=== PATIENT | male | born 1990 | race African-American/Black ===

== ENCOUNTER 2017-04-08 16:13 | Observation (INO) ==
[2017-04-08] MEDS ORDERED: SODIUM CHLORIDE 0.9% 1,000 ML IV STA (16:26)
--- NOTE | 2017-04-08 16:46 | Emergency Department Note ---
Arrival - Arrival Chief Complaint: Extremity Problem Stated Complaint: cramping all over ED Nursing Triage Note: REPORTS BILATER LEGS, ARMS AND FEET CRAMPING AFTER WORKING OUT. REPORTS NAUSEA AND VOMITTING Mode of Arrival: Stretcher Source: Patient Time Seen by Provider: 04/08/17 16:26 - History of Present Illness HPI Narrative: 26 y/o male presents to the ER complaining of total body cramps and vomiting x 1 after a 2 hour basketball workout this morning. Patient states he was working out in the gym at the [employer] without air condition. Reports he was drinking water and Gatorade during his workout. He received 1 liter of NS per EMS prior to arrival with some improvement in cramps. Denies past medical history. No local Primary Care Physician. Onset (ago): minute(s) (30) Severity: mild Quality: cramping Allergies/Adverse Reactions: Allergies Allergy/AdvReac Type Severity Reaction Status Date / Time No Known Allergies Allergy Unverified 04/08/17 16:19 Home Medications: Home Medications Medication Instructions Recorded Confirmed Type No Known Home Medications [No 04/08/17 04/08/17 History Known Home Medications] Review of System - Review of System 12 point system: reviewed and no additional remarkable complaints except as stated - Review of System Gastrointestinal: Present: nausea, vomiting (x1) Musculoskeletal: Present: other (body cramps ) Medical,Surgical,& Family Hx - Social History Smoking Status: Never smoker Frequency of Alcohol Use: Occasionally Type of Drug Use: None Exam Vital Signs: Vital Signs Temperature 98.6 F 04/09/17 08:00 Pulse Rate 62 04/09/17 08:00 Respiratory Rate 20 04/09/17 08:00 Blood Pressure 107/55 04/09/17 08:00 O2 Sat by Pulse Oximetry 98 04/09/17 08:00 - General General appearance: alert, in no apparent distress - ENT ENT exam: Present: normal exam, normal oropharynx, mucous membranes moist - Chest Chest inspection: Present: normal inspection - Respiratory Respiratory exam: Present: normal lung sounds bilaterally - Cardiovascular Cardiovascular exam: Present: regular rate, normal rhythm, normal heart sounds - Abdominal Exam Abdominal exam: Present: soft, normal bowel sounds. Absent: tenderness - Extremities Exam Extremities exam: Present: normal inspection, full ROM, normal capillary refill - Back Exam Back exam: Absent: CVA tenderness (R), CVA tenderness (L) - Neurological Exam Neurological exam: Present: alert, oriented X3 - Psychiatric Psychiatric exam: Present: normal affect, normal mood - Skin Skin exam: Present: warm, dry Course - Consultations Consultation #1: Hospitalist Time: 17:35 (Discussed with Dr. Cruz. Will admit patient to the hospital for IV fluids ) Results - Labs CBC & BMP: 04/08/17 16:39 04/09/17 06:00 Lab Results: I have reviewed the patients labs Labs: UA: WNL Disposition Clinical Impression: Muscle cramps, Elevated serum creatinine Case discussed with: patient Disposition: Still a Patient Condition: Stable
[2017-04-08 16:50] LABS: Basophils % 0.3 % (0.0-0.8); Eosinophils % 0.1 % (0.00-10.9); Hematocrit 46.3 VOL% (42.0-52.0); Hemoglobin 15.4 GM/DL (14.0-18.0); Immature Granulocytes % 0.3 %; Immature Granulocytes Absolute 0.02 #; Lymphocytes # 1.6 10*3/uL (1.4-4.0); Lymphocytes % 22.7 % (21.2-54.2); Mean Corpuscular HGB Conc 33.3 GM/DL (32-36); Mean Corpuscular Hemoglobin 29 PG (27-34); Mean Corpuscular Volume 87.7 FL (87-102); Monocytes # 0.4 10*3/uL (0.11-0.8); Monocytes % 5.3 % (1.7-12.7); Neutrophils # 4.9 10*3/uL (1.4-7.4); Neutrophils % 71.3 % (38.7-73.9); Platelet Count 193 T/CUMM (130-400); Red Blood Count 5.28 MC/CUMM (3.8-5.5); Red Cell Distribution Width 12.4 % (9.3-17.3); White Blood Count 6.9 T/CUMM (4-12)
[2017-04-08 16:53] LABS: Apearance,Urine Slightly Hazy (Clear); Bacteria,Urine Occasional /HPF (Few); Bilirubin,Urine Negative (Negative); Blood, Urine Negative (Negative); Glucose,Urine (UA) Negative (Negative); Ketones,Urine Negative (Negative); Nitrite,Urine Negative (Negative); Protein,Urine Negative; RBC,Urine 1 /HPF (0-4); Squamous Epithelial Cell,Urine Occasional /HPF (0-10); Urine Color Straw (Yellow); Urine Specific Gravity 1.002 (1.001-1.035); Urine Urobilinogen < 2.0 EU/DL (0.2-1.0); WBC,Urine 2 /HPF (0-6)
[2017-04-08 17:16] LABS: Albumin 4.8 G/DL (3.4-5.0); Bilirubin,Total 0.5 MG/DL (0.2-1.0); Calcium 9.9 MG/DL (8.5-10.1); Osmolality,Calculated 266.2 MOS/KG (273-304); Potassium 3.7 MMOL/L (3.5-5.1); Total Protein 8.9 G/DL (6.4-8.3)
[2017-04-08] MEDS ORDERED: ACETAMINOPHEN 325 MG TABLET PO PRN (17:48)
[2017-04-08] MEDS ORDERED: ZALEPLON 5 MG CAPSULE PO PRN (17:48)
[2017-04-08] MEDS ORDERED: CYCLOBENZAPRINE 10 MG TABLET PO PRN (17:50)
--- NOTE | 2017-04-08 17:55 | Hospitalist History & Physical ---
Assessment and Plan (1) Dehydration Status: Acute Current Visit: Yes (2) Muscle cramps Status: Acute Current Visit: Yes (3) Elevated serum creatinine Status: Acute Assessment and plan: Plan for this patient will be admitting him to our hospital. Patient's already received 2-3 L in the fast track of IV fluids. Will continue with IV fluids through the night. And recheck labs in the morning. Patient should be eligible for discharge at that time. Current Visit: Yes History of Present Illness Chief complaint: Muscle cramps History of present illness: Mr. Fernandez is a 26 year old male with no past medical history presents to our hospital complaining about muscle cramps. Apparently patient was working out this morning at 6:30 AM playing basketball. He was playing basketball inside. He thought he was adequately hydrating himself he started to notice some leg cramps. He took a nap and when he got up he played some more basketball. He developed worsening cramps all over his body and he threw up. He came to our hospital for further evaluation I was consulted to admit him. Per patient's own request he is requesting this to be a confidential visit Home Medications Medication Instructions Recorded Confirmed Type No Known Home Medications [No 04/08/17 04/08/17 History Known Home Medications] Allergies Allergy/AdvReac Type Severity Reaction Status Date / Time No Known Allergies Allergy Unverified 04/08/17 16:19 Medical,Surgical,& Family Hx - Medical History Medical History: noncontributory (No known medical issues) - Surgical History Surgical History: noncontributory (No known surgeries) - Family History Family History: noncontributory (No reportable family history) - Social History Smoking Status: Never smoker Frequency of Alcohol Use: Occasionally Type of Drug Use: None 12 point system: reviewed and no additional remarkable complaints except as stated Exam - Constitutional Vitals: Period Temp Pulse Resp BP Sys/Long Pulse Ox Last 24 Hr 97.4 F 74 20 124/71 98 - General General appearance: alert, in no apparent distress - ENT ENT exam: Present: normal exam, normal oropharynx, mucous membranes moist - Chest Chest inspection: Present: normal inspection - Respiratory Respiratory exam: Present: normal lung sounds bilaterally - Cardiovascular Cardiovascular exam: Present: regular rate, normal rhythm, normal heart sounds - Abdominal Exam Abdominal exam: Present: soft, normal bowel sounds. - Extremities Exam Extremities exam: Present: normal inspection, full ROM, normal capillary refill - Back Exam Back exam: Absent: CVA tenderness (R), CVA tenderness (L) - Neurological Exam Neurological exam: Present: alert, oriented X3 - Psychiatric Psychiatric exam: Present: normal affect, normal mood - Skin Skin exam: Present: warm, dry Results - Labs CBC & BMP: 04/08/17 16:39 04/08/17 16:39
[2017-04-08] MEDS: SODIUM CHLORIDE 0.9% 1,000 ML IV SCH (18:43)
[2017-04-09] MEDS: SODIUM CHLORIDE 0.9% 1,000 ML IV SCH ×2 (03:37→11:31)
[2017-04-09 07:01] LABS: Calcium 8.8 MG/DL (8.5-10.1); Osmolality,Calculated 281.3 MOS/KG (273-304)
[2017-04-09 08:02] VITALS: BP 107/55
--- NOTE | 2017-04-09 11:31 | Discharge Summary ---
Hospital Course - Hospital Course Hospital Course: 26 y/o male presented to the ER complaining of total body cramps and vomiting x 1 after a 2 hour basketball workout yesterday. Patient stated that he was working out in the gym at the [employer] without air conditioning and was sweating a lot which resulted in dehydration and some heat exhaustion and acute kidney injury which was a prerenal due to dehydration. Pt reported that he was drinking some water and Gatorade during his workout. He received 1 liter of NS per EMS prior to arrival with some improvement in cramps. The patient was admitted admitted to the hospitalist service. IV fluids were continued and his creatinine has improved from 1.9 on admission to 1.1 today. He has no further cramps or any nausea vomiting today. And is feeling much better. CPK was minimally minimally elevated due to dehydration as well and can fluctuate to some extent but is not high enough to qualify for rhabdomyolysis. Patient was advised to avoid working out outdoors, as well as indoors without air conditioning. Patient voiced understanding and said and says that he would take some rest for a few days and will drink plenty of fluid and eat healthy. With these discharge instructions patient being discharged home in improved and stable condition. Dehydration and acute kidney kidney injury has resolved. - Time spent with patient Time with patient DS: Less than 30 minutes Diagnosis - Discharge Diagnosis (1) Dehydration Status: Resolved (2) Muscle cramps Status: Resolved (3) Elevated serum creatinine Status: Resolved Discharge Plan - Discharge Data Condition at Discharge: Stable Discharge Diet: advance to your usual diet Activity: resume usual activities as tolerated Hygiene: no restrictions Weight Bearing at Discharge: full weight bearing Driving: no restrictions - Discharge Medications No Action No Known Home Medications [No Known Home Medications] - Follow Up or Referral - Forms/Instructions Exam - Constitutional Vitals: Period Temp Pulse Resp BP Sys/Long Pulse Ox Last 24 Hr 97.4 F-99.0 F 62-74 18-20 107-127/55-71 97-99 Exam: General: No Acute Distress HEENT: Normocephalic, atraumatic, Extra ocular movements intact Neck: Supple, No JVD Chest: Clear to auscultation B/L CV: S1 + S2 audible without murmur, gallop or rub Abd: soft, NT, Non-distended, BS + Ext: No edema Skin: No purpura, bruising or rash Rheumatologic: No Joint deformities Neurologic: Strength 5/5 all extremities, no gross sensory deficits Discharge Results Labs on day of discharge: Labs from last 24 hours 04/09/17 04/09/17 04/08/17 06:00 06:00 16:39 WBC RBC Hgb Hct MCV MCH MCHC RDW Plt Count MPV Neut % (Auto) Lymph % (Auto) Taylor % (Auto) Eos % (Auto) Baso % (Auto) Neut # (Auto) Lymph # (Auto) Taylor # (Auto) Eos # (Auto) Baso # (Auto) Immature Gran % Nucleated RBC % Immature Gran # Nucleated RBCs # Immature Plt Fraction Sodium 141 134 L Potassium 4.0 3.7 Chloride 107 96 L Carbon Dioxide 28 28 Anion Gap 10.0 13.7 BUN 14 13 Creatinine 1.10 1.90 H GFR Calculation 149 77 BUN/Creatinine Ratio 12.00 6.00 Glucose 90 73 L Calculated Osmolality 281.3 266.2 L Calcium 8.8 9.9 Total Bilirubin 0.50 AST 31 ALT 33 Alkaline Phosphatase 91 Total Creatine Kinase 655 H D 383 H Total Protein 8.9 H Albumin 4.8 Globulin 4.1 H Albumin/Globulin Ratio 1.1 Urine Color Urine Appearance Urine pH Ur Specific [place] Urine Protein Urine Glucose (UA) Urine Ketones Urine Blood Urine Nitrate Urine Bilirubin Urine Urobilinogen Urine Leukocytes Urine RBC Urine WBC Ur Squamous Epith Cells Urine Bacteria Ur Culture Indicated? 04/08/17 04/08/17 16:39 16:39 WBC 6.9 RBC 5.28 Hgb 15.4 Hct 46.3 MCV 87.7 MCH 29 MCHC 33.3 RDW 12.4 Plt Count 193 MPV 12.0 Neut % (Auto) 71.3 Lymph % (Auto) 22.7 Taylor % (Auto) 5.3 Eos % (Auto) 0.1 Baso % (Auto) 0.3 Neut # (Auto) 4.9 Lymph # (Auto) 1.6 Taylor # (Auto) 0.4 Eos # (Auto) 0.0 Baso # (Auto) 0.0 Immature Gran % 0.3 Nucleated RBC % 0.0 Immature Gran # 0.02 Nucleated RBCs # 0.00 Immature Plt Fraction 0.0 Sodium Potassium Chloride Carbon Dioxide Anion Gap BUN Creatinine GFR Calculation BUN/Creatinine Ratio Glucose Calculated Osmolality Calcium Total Bilirubin AST ALT Alkaline Phosphatase Total Creatine Kinase Total Protein Albumin Globulin Albumin/Globulin Ratio Urine Color Straw Urine Appearance Slightly hazy Urine pH 6.0 Ur Specific [place] 1.002 Urine Protein Negative Urine Glucose (UA) Negative Urine Ketones Negative Urine Blood Negative Urine Nitrate Negative Urine Bilirubin Negative Urine Urobilinogen < 2.0 H Urine Leukocytes Negative Urine RBC 1 Urine WBC 2 Ur Squamous Epith Cells Occasional Urine Bacteria Occasional Ur Culture Indicated? Not indicated DS: Provider Date of admission: 04/08/17 17:48 Primary care physician: . No PCP Attending physician on admission: Roshan Cruz MD Discharging clinician: Marlon Ruiz MD
== END 2017-04-09 11:45 | disposition home or self-care (01) ==
LOC: EDUNIT# → EDBD → N.EDINP 16:13 → N.ED 16:13 → SUATTDRO 17:48 → N.4E 18:25
PROVIDERS: ADMIT Internal Medicine; ATTEND Hospitalist